=== PATIENT | male | born 1960 | race Caucasian/White ===

== ENCOUNTER → 2021-02-12 11:07 | Outpatient (CLI) | payer OTHER, SELFPAY ==
[2021-02-12 13:32] LABS: COVID19 -Nasal RAPID Negative (Negative)
== END ==
PROVIDERS: Visit Provider Physician Assistant
DX: Z20.822 Contact with and (suspected) exposure to COVID-19 (principal)
CPT/HCPCS: 87635

== ENCOUNTER 2021-02-14 08:39 | Day surgery (SDC) | payer OTHER, SELFPAY ==
[2021-02-07 08:30] VITALS: BMI 36.2
[2021-02-14] VITALS (15 sets, daily range): BP systolic 97–148; BP diastolic 53–86; PULSE 63–85; RESP 12–18; TEMP 36.1–36.6; O2SAT 90–98; BMI 36.2; BMI 34.9
--- NOTE | 2021-02-14 06:30 | DI.RAD.S_ITS ---
PROCEDURE: XR KNEE LT 1TO2V INDICATIONS: post op total knee TECHNIQUE: A total of 2 view(s) of the knee acquired. COMPARISON: None. FINDINGS: Bones: Patient is status post knee joint arthroplasty. Hardware components are in expected positions. Visualized bony structures are intact. Soft tissues: Overlying postoperative changes are noted. IMPRESSION: Normal alignment after left knee arthroplasty. Dictated by: Gasper Gilliam M.D. on 02/14/2021 at 13:09 Approved by: Gasper Gilliam M.D. on 02/14/2021 at 13:09
[2021-02-14] MEDS: ACETAMINOPHEN 325 MG TABLET 975 MG PO (09:13)
[2021-02-14] MEDS: CELECOXIB 200 MG CAPSULE PO (09:14)
[2021-02-14] MEDS: LACTATED RINGERS 1,000 ML 42 ML IV (09:15)
[2021-02-14] MEDS: PREGABALIN 75 MG CAPSULE PO (09:15)
--- NOTE | 2021-02-14 09:26 | PM.PREOP ---
Pre-operative Note COVID-19 COVID-19 status: Negative Result date/Date tested (Pos, Neg/Pending): 02/12/21 Interval Note History & Physical reviewed/Exam performed by Physician: Yes Changes to H&P: No
--- NOTE | 2021-02-14 09:34 | PM.OP.1 ---
Operative Date/Time/Diagnoses Date of procedure: 02/14/21 Time of procedure: 11:36 Pre-op diagnosis: Left knee osteoarthritis Post-op diagnosis: same Procedure & Clinicians Procedure: Left total knee replacement Same procedure as scheduled: Yes Indications: The patient has had progressively worsening left knee pain with radiographic changes consistent with arthritis. Non-operative management has failed and the patient has requested total knee replacement. The risks, benefits and alternatives to surgery were discussed with the patient prior to proceeding. Risks discussed included, but were not limited to, failure to relieve pain, stiffness, infection, nerve damage, deep venous thrombosis, pulmonary embolism, stroke, coma, heart attack, permanent paralysis and , as well as the potential need for eventual revision of the prosthetic. Surgeon: Ketan Oconnell Senior Java Programmer: Albaro Arroyo Click Yes if Unassisted: No Anesthesia Type: General, Spinal and Local Operative Notes Findings: Significant medial and moderate patellofemoral osteoarthritis with preservation of the lateral compartment. Closure Type: primary Specimen(s): none sent Prosthetic devices, grafts, tissues, transplants, or devices: Implants used in this procedure were manufactured by the [employer] and [employer] and included the BCS II Journey total knee replacement with a size 7 left Oxinium femur, a size 5 left non porous tibial base plate, a 9 mm cross-linked polyethylene tibial insert and a 35 mm oval Christina II patellar resurfacing component. Applied: implant(s) Estimated Blood Loss (mL): 25 Blood products transfused: none Tourniquet time (min): 55 Procedure in detail: The patient was seen in the pre-operative area, where the left knee was identified as the operative site and this was marked with my initials. The patient received pre-operative antibiotics, and was taken to the operating room and placed on the operative table in the supine position. After satisfactory anesthesia, a multimedia developer out was performed. The left leg was encircled with a tourniquet about the proximal thigh, and the leg was prepared from the toes to the tourniquet with ChloroPrep in the usual fashion and draped through sterile drapes. The leg was elevated and exsanguinated with Eschmark bandage and the tourniquet inflated to 250 mmHg pressure. The knee was approached through an approximately 18 cm incision centered over the patella and carried into the knee through a medial parapatellar arthrotomy. The anterior osteophytes and soft tissues were removed. The rotational landmarks of Gates's line and the transepicondylar axis were marked on the femur with electrocautery, and intramedullary guide holes for the femur and tibia were created. The distal femoral cut was made in 6 degrees of valgus using the intramedullary guide at the primary cut setting. The proximal tibial cut was then made using the intramedullary guide, taking 9 mm of bone off the less involved side. The extension gap was checked and the rotation of the femoral component confirmed with the gap balancing blocks. The anterior, posterior and chamfer cuts were then made. The posterior osteophytes and soft tissues were then removed. The posterior capsule was injected with part of a mixture of 60 ml 0.25% Marcaine mixed with 20 ml Exparel and 4 mg of morphine for post-operative pain control. The remainder of this mixture was injected into the capsule and subcutaneous tissues during cement curing. The tibia was prepared with the rotation set by an extra medullary guide. Trial tibial and femoral components were then placed and the intercondylar notch cut through the femoral trial. Range of motion was 0-135 degrees, with good stability throughout the range. The patella was then cut to accommodate the patellar prosthetic. There was no need for a lateral release. The trials were then removed, and the femoral hole plugged with a bone plug. The bone was prepared with pulsatile lavage, and dried with a sponge. Cement was applied and the final prosthetics placed. Excess cement was removed during and after cement curing. After confirming there was no extruded cement posteriorly, the final tibial insert was placed. The knee was copiously irrigated and the tourniquet deflated. Hemostasis was obtained. The capsule was closed with interrupted # 2 polyester sutures. The subcutaneous layer was closed with 3-0 Vicryl, and the skin with a running 3-0 V-Lock suture and Dermabond. An Aquacel Ag dressing was applied followed by an Gibran wrap and the patient was taken to recovery having tolerated the procedure well. Complications: none Post-operative Condition: stable Disposition: PACU Plan for aftercare: The patient will be maintained on a standard total knee replacement protocol with weight bearing as tolerated. The patient will receive aspirin and sequential compression devices for DVT prophylaxis. The patient will be discharged home when safe for the home environment.
[2021-02-14] MEDS: CEFAZOLIN 2 GM/100 ML FROZ.PIGGY IV (09:49)
[2021-02-14] MEDS: TRANEXAMIC ACID 1,000 MG VIAL 1000 MG INJ (10:00)
--- NOTE | 2021-02-14 10:18 | SUR.OPER ---
Supine on padded OR bed. Pillow under head, arms secured on padded armboards <90 degree abduction. Safety belt across torso. Non-operative leg secured with tape over blanket over lower leg. Operative leg secured in DeMayo/Osmany positioner. Foam padded brace at thigh of operative leg.
[2021-02-14] MEDS: BUPIVACAINE LIPOSOME 266 MG/20 ML VIAL INJ (10:22)
[2021-02-14] MEDS: BUPIVACAINE 0.25% W/ EPI 30 ML VIAL 60 ML INJ (10:22)
[2021-02-14] MEDS: MORPHINE 4 MG/ML INJ INJ (10:23)
[2021-02-14] MEDS: LACTATED RINGERS 1,000 ML 100 ML IV ×2 (11:40→22:34)
[2021-02-14] MEDS: IBUPROFEN 400 MG TABLET PO ×2 (13:25→21:03)
--- NOTE | 2021-02-14 14:01 | PC.NURSE ---
Assumed care of patient from PACU at 1135, patient is A/O x 4. LLE Dsg CDI, JESSA wrap, Ice on, SCD's on bilaterally. LR @ 100cc infusing in RAC. Patient lungs CTA, 94% on RA. Denies SOB. Denies sensation below thigh, pulses intact, denies pain. Able to move LLE. Patient tolerating fluids and food. No complaints at this time.
[2021-02-14] MEDS: ACETAMINOPHEN 325 MG TABLET 650 MG PO ×2 (14:09→21:04)
--- NOTE | 2021-02-14 16:17 | PT.IIE ---
Current Diagnoses Unilateral primary osteoarthritis, left knee (02/14/21) Surgery Performed Operation Date: 02/14/21 10:15 Actual Procedures p Total Knee Arthroplasty(Left) - Ketan Oconnell MD Surgical History (Last Updated 02/07/21 @ 09:10 by Mercy Burris, RN) History of vasectomy Hx of cholecystectomy Medical History (Last Updated 02/07/21 @ 09:10 by Mercy Burris, RN) Acid reflux Arthritis Osteoarthritis Seasonal allergies Physical Therapy Inpatient Evaluation/Re-Eval M1 PT/OT-IP Prior Functional Status Start: 02/14/21 12:46 Freq: NEEDED Status: Active Protocol: Document 02/14/21 16:17 AW (Rec: 02/14/21 16:51 AW [id number]) Medical Review Prior Functional Status Medical History Reviewed Yes Communication WNL Mobility and Gait Pt is independent with all mobility but admits he has been using bilateral axillary crutches the past few days due to increased pain. Activities of Daily Living and IADL's Independent Prior Functional Level (Other details) Pt states he has fallen once or twice in the past year. One fall was during a pickleball match. The other fall happened when he accidentally stepped into a hole. Social History Household Members spouse Living Arrangements House Number of Floors (Floors) Two Floors Number of Stairs To Enter/Railing? 5 BEHZ[address] through garage with R rail ascending. House has basement but pt has no need to access it. Home Environment High Toilet,Walk in Shower, Built-In Shower Seat Home Equipment Four Wheel Walker,Straight Cane,Crutches,Hand Held Shower Employment Status Retired Additional Social History Comment Pt lives with his , Iyv. He stays active with hiking, biking, and pickleball . M2 PT-IP Current Condition Start: 02/14/21 12:46 Freq: NEEDED Status: Active Protocol: Document 02/14/21 16:17 AW (Rec: 02/14/21 16:51 AW [id number]) Physical Therapy Current Condition Current Condition Evaluation Date 02/14/21 Treatment Diagnosis L TKA; difficulty in walking Onset Date 02/14/21 Weight Bearing Status Weight Bearing Status Weight Bear as Tolerated M3 PT-IP Subjective Start: 02/14/21 12:46 Freq: NEEDED Status: Active Protocol: Document 02/14/21 16:17 AW (Rec: 02/14/21 16:51 AW [id number]) Subjective Physical Therapy Visit Type Type Initial Evaluation Visit Start Time 15:50 Visit Stop Time 16:17 Total Visit Minutes 27 Notes Pt's spouse was present throughout evaluation. Number of VACCINES SOLUTIONS SPECIALIST Visits 0 Physical Therapy Visit Comments Patient Comments Pt is willing to participate with PT Therapy Pain Assessment Pain When Pain Assessed During Mobility Pain Present Pain Present Denied Pain M4 PT-IP Mobility and Gait Start: 02/14/21 12:46 Freq: NEEDED Status: Active Protocol: Document 02/14/21 16:17 AW (Rec: 02/14/21 16:51 AW [id number]) PT-Bed Mobility Assessment Supine to Sit Supine to Sit Standby Assistance Scooting Scooting to Edge of Bed Standby Assistance PT-Transfer Assessment Sit to and From Stand Sit to and from Stand Standby Assistance,Use of Upper Extremities Equipment Transfer Assistive Device Gait Belt,Front Wheeled Walker Orthotic/Prosthetic Devices or Brace: No Transfers Transfer Destination Chair Transfer Technique Stand Step Pivot Transfer Ability Level of Assist Standby Assistance Comments Mobility Comments Pt was lying in bed as PT arrived. He completed all bed mobility SBA and sat EOB with good sitting balance. He reported mild lightheadedness in sitting but symptoms cleared quickly. BP was stable 140's/80's. Pt stood from the bed and used the FWW to ambulate ~15 feet around the room before transferring to the chair. He noted mild nausea in sitting. PT informed RN of pt symptoms. Pt was left with call light and all needs in reach. Gait Assessment Gait Gait Assistance Required: Standby Assistance Distance (Feet) 15 Able to Maintain Weight Bearing Status Yes During Gait Assistive Devices Assistive Device Gait Belt,Front Wheeled Walker Orthotic/Prosthetic Devices or Brace: No Gait Deviations General Gait Pattern Antalgic,Decreased Stride Length,Decreased Feet Clearance,Step-to Gait Factors Limiting Gait Function Factors Limiting Gait Function Decreased Sensation,Decreased Strength,Limited Range of Motion,Pain Comments Gait Comments See mobility comments for details. Stair Climbing Assessment Comments Stair Climbing Comments Not assessed. Pt agrees to complete stair training in the AM. PT-Balance Assessment Sitting Balance and Reactions Static Sitting Balance Ability Good Dynamic Sitting Balance Ability Good Standing Balance and Reactions Static Standing Balance Ability Good Dynamic Standing Balance Ability Good Device Used FWW M5 PT-IP Objective Assessments Start: 02/14/21 12:46 Freq: NEEDED Status: Active Protocol: Document 02/14/21 16:17 AW (Rec: 02/14/21 16:51 AW [id number]) Orientation Orientation/Cognition Level of Alertness Alert Orientation Name,Day of Week,Place, Situation Language Function Ability No Deficits Noted Safety Awareness Understands Safety Issues Memory Description No Deficits Noted Gross Range of Motion Lower Extremity ROM Assessment Left Impaired Strength Lower Extremity Strength Assessment Left Impaired Hip 4/5 Knee 3/5 Ankle 4/5 Comments Strength Comments RLE grossly 5/5 Sensation Assessment Sensation Gross Sensation Right LE Impaired Light Touch Impaired Proprioception (Position) Impaired M6 PT-IP Treatment Start: 02/14/21 12:46 Freq: NEEDED Status: Active Protocol: Document 02/14/21 16:17 AW (Rec: 02/14/21 16:51 AW [id number]) Physical Therapy Treatment Exercises Exercises Ankle Pumps,Quad Sets,Heel Slides,Passive Knee Extension Hang Education Education Provided Precautions,Weight Bearing Status,Post-Op Packet,Safety Other Treatments Other Treatment Performed Provided education on role of PT, plan of care, weightbearing status, and rationale for use of an AD in the postoperative period. M7 PT-IP Assessment and Plan Start: 02/14/21 12:46 Freq: NEEDED Status: Active Protocol: Document 02/14/21 16:17 AW (Rec: 02/14/21 16:51 AW [id number]) PT Summary Assessment and Plan Potential Rehabilitation Potential Good Status of Condition at Evaluation Evolving Summary Impairments Pain,ROM,Strength,Balance, Sensation,Bed Mobility, Transfers,Gait Assessment Summary Brendon is a 60 yo man seen for PT evaluation on POD0 following L TKA. He is independent in all regards at baseline. He required SBA with use of FWW for mobility on evaluation. Pt will need to clear stairs prior to discharge. He has a 4WW at home so PT will assess mobility with 4WW. Pt will be safe for discharge home with assist once medically stable. Goals Bed Mobility Goal Independent Transfer Goal Independent,Front Wheeled Walker,Four Wheeled Walker Gait Goal Independent,Front Wheel Walker ,Four Wheel Walker Gait Distance 200 Other Goals -up/down 5 steps with R rail ascending Frequency of Treatment Frequency Of Treatment Twice a Day Treatment Plan Physical Therapy Treatment Plan Bed Mobility Training,Transfer Training,Gait Training, Therapeutic Exercise,Balance Retraining,Post Op Education, Discharge Planning,Hot or Cold Pack Other Recommendations and Next Treatment assess gait with 4WW; stair Focus training Discharge Recommendations PT Discharge Recommendations Home with Assistance, Outpatient PT Equipment Needed for Home Before FWW if unsafe with 4WW Discharge Transportation Needs at Discharge Private Vehicle
[2021-02-14] MEDS: ONDANSETRON 4 MG ODT PO (16:40)
[2021-02-14] MEDS: ASPIRIN EC 81 MG TABLET PO (21:03)
[2021-02-14] MEDS: DOCUSATE 100 MG CAPSULE PO (21:03)
--- NOTE | 2021-02-14 22:48 | PC.NURSE ---
Satisfactory post op course. ' Gibran/aquacell dsg to left knee CDI. IVF infusing as per orders w/o incidence SpO2 98% RA, lungs clear, Denies any discomfort when asked SCD in place. Call light w/in reach. Pt calls appropriately for needs. Continue w/Plan of care.
--- NOTE | 2021-02-14 23:49 | PC.NURSE ---
Addendum entered by Janice Pastrana R.N. 02/15/21 05:42: Denies pain again this morning stating he only has an ache of 2/10 with movement Original Note: patient is alert and oriented. Breath sounds CTA with RA sat of 95%. HRR. Denies nausea. BT present and abdomen is soft; denies flatus as yet. Denies dysuria, frequency or urgency with urination but states he still feels some decreased sensation in bladder. Is able to turn himself in bed. Up to bathroom with walker and 1 assist. Is able to lift left leg but decreased ROM; CMS is intact. Aquacel dressing covered with francisca wrap is CDI. Wearing bilateral calf SCD's. Denies pain currently but ice applied for comfort and is agreeable to continuing scheduled Ibuprofen. Fall risk score is moderate but patient is calling appropriately for assistance so bed alarm is not being used at this time.
[2021-02-15] MEDS: IBUPROFEN 400 MG TABLET PO ×3 (00:30→08:05)
[2021-02-15] MEDS: PANTOPRAZOLE 20 MG TABLET PO (05:32)
[2021-02-15 05:47] VITALS: BP 127/80; PULSE 82; RESP 16; TEMP 36.6; O2SAT 96
[2021-02-15 06:14] LABS: Hematocrit 39.8 % (41-53); Hemoglobin 13.9 g/dL (13.5-17.5)
--- NOTE | 2021-02-15 07:28 | P.DS_ITS ---
History of Present Illness History of Present Illness Date Patient Seen: 02/15/21 Time Patient Seen: 07:29 Chief complaint: OPB Narrative: The history and physical is contained in the chart in a previously completed note. Please refer to that note for this information. Discharge Providers Provider Discharge Date: 02/15/21 Primary care physician: Cristhian Sanchez MD Consults: 02/14/21 12:37 Consult to Discharge Planning Routine Comment: Consult to Physical Therapy Evaluate & Treat Comment: Physician Instructions: postop TKA protocol Discharge provider: Ketan Oconnell MD Summary Hospital Course Discharge Diagnosis: 1. Left knee osteoarthritis 2. Mild post hemorrhagic anemia Hospital Course: The patient was admitted to the hospital and taken directly to the operating room on February 14, 2021. He underwent a left total knee replacement without complication. On postoperative day 1 he had a mild post hemorrhagic anemia which did not require further treatment. He was medically stable. At the time of this dictation the plan is for him to have physical therapy to work on stairs and then discharge home. Status at Discharge Cognitive/behavioral status at discharge: oriented Functional status at discharge: uses cane/walker Overall status at discharge: patient is progressing back to baseline Time Spent with Patient Time spent: Less than 30 minutes Exam Vital Signs (past 8 hours): - 02/15/21 05:47 Temperature 97.8 F Pulse Rate 82 Respiratory Rate 16 Blood Pressure 127/80 Pulse Oximetry 96 Oxygen Delivery Method Room Air Oxygen Flow Rate 0 Narrative Exam Narrative: Left knee wound is dressed with no drainage on the bandage. Calf is soft. Light touch and motion are intact on the left lower extremity. Objective Labs Result Diagrams: 02/15/21 05:41 Labs: Laboratory Results - last 24 hr 02/15/21 05:41 Hgb 13.9 Hct 39.8 L PFSH Medical History (Updated 02/07/21 @ 09:10 by Mercy Burris RN) Acid reflux Arthritis Osteoarthritis Seasonal allergies Surgical History (Updated 02/07/21 @ 09:10 by Mercy Burris RN) History of vasectomy Hx of cholecystectomy Social History household members: spouse Smoking Status: Former smoker alcohol intake: current Discharge Assessment & Plan Assessment and Plan Assessment: Stable postoperative day 1 status post left total knee replacement. He appears to be ready for discharge today. Plan of Treatment: Discharge after physical therapy this morning. Follow-up in 10-14 days in my office. Discharge prescriptions for oxycodone and Vistaril have been transmitted to [facility]. He has been instructed in the use of ibuprofen and Tylenol for additional pain control and in the use of 81 mg aspirin b.i.d. for DVT prophylaxis. Discharge Plan Discharge Plan Patient Disposition: Home Discharge orders & Medications Discharge Orders: Discharge (Order); Ordered 02/15/21 Ordered By: Ketan Oconnell Prescriptions: New acetaminophen 325 mg Tablet 650 mg PO TID 30 Days Qty: 180 RF: 0 aspirin 81 mg Tablet,Delayed Release (Dr/Ec) 81 mg PO BID 42 Days Qty: 84 RF: 0 ibuprofen 400 mg Tablet 400 mg PO Q4HR 30 Days RF: 0 oxycodone 5 mg Tablet 5 mg PO Q3HR PRN (Reason: Pain, Moderate (4-6)) Qty: 40 RF: 0 hydroxyzine pamoate 25 mg Capsule 25 mg PO Q6HR PRN (Reason: Nausea) Qty: 30 RF: 0 Continued omeprazole 20 mg Capsule,Delayed Release(Dr/Ec) 20 mg PO DAILY RF: 0 Advil Cold and Sinus 30-200 mg Capsule 1 cap PO DAILY RF: 0 fluticasone propionate 50 mcg/actuation [place],Suspension 3 spray INTRANASAL DAILY RF: 0 Advil PM 200-38 mg Tablet 1 cap PO BEDTIME RF: 0 Discontinued aspirin [Aspir-81] 81 mg Tablet,Delayed Release (Dr/Ec) 81 mg PO DAILY RF: 0 acetaminophen [Acetaminophen Extra Strength] 500 mg Tablet 1,000 mg PO BID RF: 0 Follow up/Referrals: Cristhian Sanchez MD [Primary Care Provider] - Ketan Oconnell MD [Physician] - 2 Weeks Diet/Activity/Treatments Diet: Diet as Tolerated and Regular Activity: You may bear weight as tolerated on your left leg. Cold/Heat Therapy: Apply ice to the left knee for 15 minutes every hour as needed for pain control. Skin/Wound/Dressing Care Report to your healthcare provider any signs of infection, such as:: chills, fever, night sweats, increased pain, unusual drainage and unusual redness Dressing: You may remove the Gibran wrap 3 days after surgery and shower normally. Leave the deeper dressing in place until your follow-up. If the central strip of the deeper dressing becomes saturated with either water or blood, please call the office to have it evaluated. Visit Report/Discharge Packet Instructions: DI for Knee Replacement Stand Alone Forms: Surgery Discharge Discharge Data Primary Care Provider: Cristhian Sanchez Attending Provider: Ketan Oconnell
[2021-02-15 07:40] VITALS: BP 127/74; PULSE 78; RESP 18; TEMP 36.6; O2SAT 97
[2021-02-15] MEDS: OXYCODONE/ACETAMINOPHEN 5/325 TABLET 1 TAB PO (08:04)
[2021-02-15] MEDS: ASPIRIN EC 81 MG TABLET PO (08:04)
[2021-02-15] MEDS: DOCUSATE 100 MG CAPSULE PO (08:04)
[2021-02-15] MEDS: ACETAMINOPHEN 325 MG TABLET 650 MG PO (08:05)
[2021-02-15] MEDS: hydrOXYzine pamoate 25 MG CAPSULE PO (09:27)
--- NOTE | 2021-02-15 10:57 | PT.IPTN ---
Current Diagnoses Unilateral primary osteoarthritis, left knee (02/14/21) Surgery Performed Operation Date: 02/14/21 10:15 Actual Procedures p Total Knee Arthroplasty(Left) - Ketan Oconnell MD Physical Therapy Treatment Note M2 PT-IP Current Condition Start: 02/14/21 12:46 Freq: NEEDED Status: Active Protocol: Document 02/14/21 16:17 AW (Rec: 02/14/21 16:51 AW [id number]) Physical Therapy Current Condition Current Condition Evaluation Date 02/14/21 Treatment Diagnosis L TKA; difficulty in walking Onset Date 02/14/21 Weight Bearing Status Weight Bearing Status Weight Bear as Tolerated M3 PT-IP Subjective Start: 02/14/21 12:46 Freq: NEEDED Status: Active Protocol: Document 02/15/21 10:57 AW (Rec: 02/15/21 11:06 AW [id number]) Subjective Physical Therapy Visit Type Type Treatment Note Visit Start Time 10:35 Visit Stop Time 10:56 Total Visit Minutes 21 Notes Pt's spouse present throughout treatment Number of INVENTORY AUDITOR Visits 0 Physical Therapy Visit Comments Patient Comments Pt is willing to participate with PT Patient Goals Hoping to discharge this morning Therapy Pain Assessment Pain When Pain Assessed During Mobility Pain Present Pain Present Pain Reported Location L knee Scale Used not quantified Pain Behaviors Facial Grimacing Pain Management Techniques Apply Cold,Timing of Activity with Medications M4 PT-IP Mobility and Gait Start: 02/14/21 12:46 Freq: NEEDED Status: Active Protocol: Document 02/15/21 10:57 AW (Rec: 02/15/21 11:06 AW [id number]) PT-Bed Mobility Assessment Supine to Sit Supine to Sit Standby Assistance Scooting Scooting to Edge of Bed Standby Assistance PT-Transfer Assessment Sit to and From Stand Sit to and from Stand Standby Assistance,Use of Upper Extremities Equipment Transfer Assistive Device Gait Belt,4 Wheeled Walker Orthotic/Prosthetic Devices or Brace: No Transfers Transfer Destination Chair Transfer Technique Stand Step Pivot Transfer Ability Level of Assist Standby Assistance Comments Mobility Comments Pt was lying in the bed as PT arrived. He used RLE to lift LLE out of bed, completing supine to sit SBA. He stood and ambulated in the halls 200 feet with 4WW SBA. On return to the room, he transferred to the chair SBA to prepare for discharge. Gait Assessment Gait Gait Assistance Required: Standby Assistance Distance (Feet) 200 Able to Maintain Weight Bearing Status Yes During Gait Assistive Devices Assistive Device Gait Belt,4 Wheeled Walker Orthotic/Prosthetic Devices or Brace: No Gait Deviations General Gait Pattern Antalgic,Decreased Stride Length,Decreased Feet Clearance,Step-to Gait Factors Limiting Gait Function Factors Limiting Gait Function Decreased Strength,Limited Range of Motion,Pain Comments Gait Comments Pt required cues for hip extension and for step-through patterning. He was safe with 4WW. Stair Climbing Assessment Evaluation Level of Assist On Stairs Standby Assistance Devices Stair Climbing Assistive Devices Right Railing Technique/Endurance Stair Climbing Direction Ascend and Descend Stair Climbing Technique Step to Step Number of Steps Climbed 3 Stair Climbing Set # Repetitions (reps) 1 Comments Stair Climbing Comments PT demonstrated and pt completed set of stairs without further cueing. PT-Balance Assessment Sitting Balance and Reactions Static Sitting Balance Ability Good Dynamic Sitting Balance Ability Good Standing Balance and Reactions Static Standing Balance Ability Good Dynamic Standing Balance Ability Good Device Used FWW M5 PT-IP Objective Assessments Start: 02/14/21 12:46 Freq: NEEDED Status: Active Protocol: Document 02/14/21 16:17 AW (Rec: 02/14/21 16:51 AW [id number]) Orientation Orientation/Cognition Level of Alertness Alert Orientation Name,Day of Week,Place, Situation Language Function Ability No Deficits Noted Safety Awareness Understands Safety Issues Memory Description No Deficits Noted Gross Range of Motion Lower Extremity ROM Assessment Left Impaired Strength Lower Extremity Strength Assessment Left Impaired Hip 4/5 Knee 3/5 Ankle 4/5 Comments Strength Comments RLE grossly 5/5 Sensation Assessment Sensation Gross Sensation Right LE Impaired Light Touch Impaired Proprioception (Position) Impaired M6 PT-IP Treatment Start: 02/14/21 12:46 Freq: NEEDED Status: Active Protocol: Document 02/15/21 10:57 AW (Rec: 02/15/21 11:06 AW [id number]) Physical Therapy Treatment Education Education Provided Weight Bearing Status,Safety Other Treatments Other Treatment Performed Counseled pt to use 4WW at least until seen by outpatient PT. M7 PT-IP Assessment and Plan Start: 02/14/21 12:46 Freq: NEEDED Status: Active Protocol: Document 02/15/21 10:57 AW (Rec: 02/15/21 11:06 AW [id number]) PT Summary Assessment and Plan Summary Impairments Pain,ROM,Strength,Balance, Sensation,Bed Mobility, Transfers,Gait Progress Towards Goals Progressing Toward Goals,Safe For Discharge Assessment Summary Brendon improved his mobility this date and was able to navigate stairs with unilateral rail. He was slightly impulsive and mentioned he would likely use crutches at home. PT advised pt to use 4WW until evaluated by outpatient PT due to safety concerns. Pt and his agreed. Pt is safe to return home with assist and outpatient PT. Goals Bed Mobility Goal Independent Transfer Goal Independent,Front Wheeled Walker,Four Wheeled Walker Gait Goal Independent,Front Wheel Walker ,Four Wheel Walker Gait Distance 200 Other Goals -up/down 5 steps with R rail ascending Frequency of Treatment Frequency Of Treatment Discharge Discharge Recommendations PT Discharge Recommendations Home with Assistance, Outpatient PT
--- NOTE | 2021-02-15 11:53 | PC.NURSE ---
Went over dc instructions with patient and patients spouse, questions answered. Patient taken via wc to vehicle driven by spouse, patient had all belongings.
--- NOTE | 2021-02-15 16:42 | CM.DANOTE ---
DCP ASSESSMENT: Patient is a pleasant 60 year-old male admitted for a LTKA. PCP is Cristhian Sanchez. Primary payer is [facility] and self-pay. MATERIALS MANAGEMENT MANAGER Student met with patient at beside with Ivy meza , provided education on role of social work in D/C planning. Patient is active and independent with ADL?s for a short time prior to LTKA he was using crutches. He does have access to 4WW, FWW, crutches and cane at time of D/C and for use during his recovery period. Physical therapy is recommending outpatient physical therapy which, patient is aware and will be scheduling his follow-up appointment. Patient and anticipate home when medically stable. will provide transportation. PLAN: Anticipate D/C home when medically stable. CM Team to continue to follow. NIDA Sandy MSW Student Discharge Planning/Care Management Advanced directive, confirm from FAMILY Start: 02/14/21 13:07 Freq: Q24H Status: Discharge Protocol: Document 02/14/21 13:07 MICHAEL (Rec: 02/14/21 13:19 [id number]) Advance Directive, confirm on record Time 13:19 Person contacted Patient Copy received No CM Discharge Assessment Start: 02/15/21 11:13 Freq: Status: Discharge Protocol: Document 02/15/21 11:21 AL (Rec: 02/15/21 11:25 AL [id number]) Discharge Planning Assessment Assigned [employer] Board Certified Orthotist NIDA Marie Student Contact Information Ivy Messina, Advance Directives? Yes Advance Directives on File No History Provided By Patient,Family Member,Medical Record Has Patient been admitted in last 30 No days? Prior Living Arrangements House Household Members spouse Type of transporation used prior to Drives own vehicle admit Comment will provide transportation at time of D/C Independent with ADL's Yes Is patient alert and oriented? Yes Community Services used prior to Physical Therapy admission: Comment Patient todd have out-patient physical therapy DME Already Rented / Owned FWW / Walker,Cane,Crutches Comment Patient has been using crutches for mobility. He will be using a 4WW at home initially but, has access to cane, crutches and FWW. Barriers to Discharge No Discharge Plan Home Community Services Physical Therapy Transportation Arrangement will provide transportation from hospital Whiteboard Updated in Patient Room with Yes name and ext. # of American Board Certified Orthotist Review Status In Process Pre-Anesthesia Assessment Start: 02/07/21 08:30 Freq: Status: Complete Protocol: Document 02/07/21 08:30 CAB (Rec: 02/07/21 09:30 [facility] [id number]) Pre-Anesthesia Assessment Preferred Name Brendon or Elijah Patient Information Reviewed Via Phone Assessment Comment Labs/EKG done per pt, not available time of PAC, COVID screen @ [facility] 02/12/21 Primary Care Provider Cristhian Sanchez Seen Specialist in Last 12 Months Yes Specialist Seen Orthopedist Primary Language [place] Picker And Sorter Load And Unload Required No Height 173.99 cm Weight 109.769 kg Body Mass Index (BMI) 36.2 Hearing Ability Normal Visual Assist Glasses Dentition Type Dental Implants Barriers to Learning None Other Aids No Hx Anesthesia Reactions No Hx Family Anesthesia Reaction No Hx Malignant Hyperthermia No Hx Blood Transfusions No Hx Blood Transfusion Reaction No Anesthesia Review Requested No alcohol intake current alcohol intake frequency a few times a week Smoking Status Former smoker Tobacco type cigarettes,cigars how long ago did patient quit smoking Quit cigarettes 2007, continues to smoke a cigar Substance Use Type does not use Pain Present Pain Reported Musculoskeletal Symptoms Abnormal Gait,Back Pain, Difficulty Walking,Joint Pain, Limited Range of Motion History of Falling (Recent or History of No ) Patient is completely paralyzed or No completely immobile Ambulatory Aid None/bed rest/nurse assist Mental Status Oriented to own ability Comment Left leg brace for support Is patient on oxygen? No Does patient have DESAI/SOB No Hx Sleep Apnea No Currently Taking a Beta Vida No Can You Climb a Flight of Stairs Without Yes SOB Hx Chest Pain No Hx SOB No Hx Syncope or Dizziness No Anti-Coagulant Therapy Yes: ASA 81mg for DVT hx 2020 Has a Advertising Copywriter No Cardiac Testing No Hx Pacemaker/ICD No Pacemaker Rep Required? No Cardiac Clearance Received Not Applicable Diet Type At Home Other dysphagia Will start Nutri-systems Gastrointestinal Symptoms Reflux Bladder Pattern Frequency Urinary Catheter Present No Hx Urinary Self Catheterization No Diabetes No Hx Drug Resistant Organism No Presence of External or Internal Medical Yes: Left leg brace Devices Have you had any close contact with No someone diagnosed with COVID-19? Marital Status Lives With spouse Prior Living Arrangements House Number of Floors (Floors) Two Floors Support System Spouse Does the Patient Have Assistance After Yes Surgery Patient Discharge Plan Description Return Home Comment Pt advised possible overnight length of stay per surgeon Feels Safe in Current Environment Yes Been Physically Hurt or Threatened By a No Person in Current Environment Do you have thoughts of harming yourself None or others? Are you currently considering suicide? No Do you have a plan to hurt yourself or No Plan others? Do You Have Any Spiritual Beliefs That No May Affect Your HC Choices? Do You Have Any Cultural Practices That No May Affect Your HC Choices? Spiritual Referral None Who Can We Speak to About Patient's Care Family, friends Identifying Code for Release of Patient Declines to issue Information Health Care Proxy/Next of Kin Ivy mike Health Care Proxy Emergency Contact Name Ivy mike Emergency Contact Advance Directives? Yes Advance Directives on File No Requested Patient Bring Advanced Yes Directives DOS Power of Human Resources Trainee Yes Power of Human Resources Trainee Name Ivy taylor Power of Human Resources Trainee PAC Instructions Durable medical equipment, Medications to take/avoid, Nasal antibiotic,No ETOH/ petroleum product on skin DOS, NPO,Post-op transportation,Pre -surgical wash,Sturdy shoes/ comfortable clothes,Do not bring valuables and remove jewelry
== END 2021-02-15 11:54 | disposition home or self-care (01) ==
LOC: OR 08:43 → AC 08:43
PROVIDERS: PCP Family Medicine; Referring Provider Orthopaedic Surgery; Visit Provider Orthopaedic Surgery
PROC: 0SRD0JZ Replacement of Left Knee Joint with Synthetic Substitute, Open Approach (ICD-10-PCS; CPT 27447; principal; 2021-02-14 10:15)
DX: M17.12 Unilateral primary osteoarthritis, left knee (principal); K21.9 Gastro-esophageal reflux disease without esophagitis; E66.9 Obesity, unspecified; Z68.37 Body mass index [BMI] 37.0-37.9, adult; Z86.718 Personal history of other venous thrombosis and embolism; D50.0 Iron deficiency anemia secondary to blood loss (chronic)
CPT/HCPCS: 27447; 36415; 73560; 85014; 85018; 94762; 97116; 97161; C1776; C9290; J0690; J1100; J2250; J2270; J2274; J2405; J2704; J3010